=== PATIENT | female | born 1995 | race American Indian/Alaskan Native ===

== ENCOUNTER 2018-12-01 01:21 | Emergency (ER) | payer BC, MEDICAID ==
[2018-12-01 01:30] VITALS: BP 135/96
[2018-12-01] MEDS ORDERED: FUL-GLO OP ONE ×2 (02:40→02:42)
[2018-12-01] MEDS ORDERED: TETRACAINE 0.5% OU ONE (02:47)
[2018-12-01] MEDS ORDERED: TETRACAINE 0.5% ONE (02:48)
--- NOTE | 2018-12-01 03:16 | Emergency Department Report ---
ED Eye Problem HPI - General Chief complaint: Eye Problems Stated complaint: RT EYE PAIN Time Seen by Provider: 12/01/18 03:11 Source: patient Mode of arrival: Ambulatory Limitations: No Limitations - History of Present Illness Initial comments: 23-year-old -[place] female presents to the emergency room for watery red and painful right eye since Monday. Patient gerson wearing contacts or any trauma to her right eye. Patient reports that she has light sensitivity tearing and painfulness. chief complaint: eye pain -: days(s) (2) Location: right eye If Injury: none Eye Symptoms: burning, redness, pain, photophobia Severity scale (0 -10): 8 If Pain, Quality: sharp, aching, throbbing Consistency: constant Associated Symptoms: headache Treatments Prior to Arrival: none - Related Data Home Medications Medication Instructions Recorded Confirmed Last Taken Clindamycin [Clindamycin CAP] 300 mg PO BID 01/15/14 11/22/16 Unknown Nitrofurantoin [place]/M-Cryst 100 mg PO BID 01/15/14 11/22/16 Unknown [Macrobid] Gummies 1 tab PO DAILY 11/22/16 11/22/16 11/21/16 07:00 1 Previous Rx's Medication Instructions Recorded Last Taken Type Methylergonovine [Methergine] 0.2 mg PO BID #6 tablet 01/15/14 Unknown Rx oxyCODONE /ACETAMINOPHEN [Percocet 1 tab PO Q6HR PRN #20 tablet 01/15/14 Unknown Rx 5/325 mg] Ferrous Sulfate [Feosol 325 MG tab] 325 mg PO BID #60 tablet 11/26/16 Unknown Rx Ibuprofen [Motrin 800 MG tab] 800 mg PO Q6H PRN #30 tablet 11/26/16 Unknown Rx oxyCODONE /ACETAMINOPHEN [Percocet 1 - 2 tab PO Q4H PRN #30 tablet 11/26/16 Unknown Rx 5/325 mg] Labetalol HCl 300 mg PO BID #60 tablet 11/30/16 Unknown Rx NIFEdipine XL [Procardia Xl] 30 mg PO Q12HR #60 tab 11/30/16 Unknown Rx Acetaminophen/Codeine [Tylenol 1 tab PO Q4HR PRN #12 tablet 12/01/18 Unknown Rx /Codeine # 3 tab] Ibuprofen [Motrin 600 MG tab] 600 mg PO Q8H PRN #30 tablet 12/01/18 Unknown Rx Moxifloxacin HCl [Vigamox 0.5%] 1 drop OD Q8HR 10 Days #1 bottle 12/01/18 Unknown Rx Allergies Allergy/AdvReac Type Severity Reaction Status Date / Time No Known Allergies Allergy Unverified 01/15/14 09:13 ED Review of Systems ROS: Stated complaint: RT EYE PAIN Other details as noted in HPI Comment: All other systems reviewed and negative Eyes: eye pain ED Past Medical Hx - Past Medical History Hx Hypertension: Yes (PIH) Hx Congestive Heart Failure: No Hx Diabetes: No Hx Asthma: No Hx COPD: No - Surgical History Past Surgical History?: Yes Additional Surgical History: - Social History Smoking Status: Never Smoker Substance Use Type: None - Medications Home Medications: Home Medications Medication Instructions Recorded Confirmed Last Taken Type Clindamycin [Clindamycin CAP] 300 mg PO BID 01/15/14 11/22/16 Unknown History Methylergonovine [Methergine] 0.2 mg PO BID #6 tablet 01/15/14 11/22/16 Unknown Rx Nitrofurantoin [place]/M-Cryst 100 mg PO BID 01/15/14 11/22/16 Unknown History [Macrobid] oxyCODONE /ACETAMINOPHEN [Percocet 1 tab PO Q6HR PRN #20 tablet 01/15/14 11/22/16 Unknown Rx 5/325 mg] Gummies 1 tab PO DAILY 11/22/16 11/22/16 11/21/16 07:00 History 1 Ferrous Sulfate [Feosol 325 MG tab] 325 mg PO BID #60 tablet 11/26/16 Unknown Rx Ibuprofen [Motrin 800 MG tab] 800 mg PO Q6H PRN #30 tablet 11/26/16 Unknown Rx oxyCODONE /ACETAMINOPHEN [Percocet 1 - 2 tab PO Q4H PRN #30 tablet 11/26/16 Unknown Rx 5/325 mg] Labetalol HCl 300 mg PO BID #60 tablet 11/30/16 Unknown Rx NIFEdipine XL [Procardia Xl] 30 mg PO Q12HR #60 tab 11/30/16 Unknown Rx Acetaminophen/Codeine [Tylenol 1 tab PO Q4HR PRN #12 tablet 12/01/18 Unknown Rx /Codeine # 3 tab] Ibuprofen [Motrin 600 MG tab] 600 mg PO Q8H PRN #30 tablet 12/01/18 Unknown Rx Moxifloxacin HCl [Vigamox 0.5%] 1 drop OD Q8HR 10 Days #1 bottle 12/01/18 Unknown Rx ED Physical Exam - General Limitations: No Limitations General appearance: alert, in no apparent distress - Head Head exam: Present: atraumatic, normocephalic - Eye Eye exam: Present: PERRL, EOMI, other (flouroscein up take where also is identified at 5:00 both abrasion.) - ENT ENT exam: Present: mucous membranes moist - Respiratory Respiratory exam: Present: normal lung sounds bilaterally. Absent: respiratory distress - Cardiovascular Cardiovascular Exam: Present: regular rate, normal rhythm. Absent: systolic murmur, diastolic murmur, rubs, gallop - Neurological Exam Neurological exam: Present: alert, oriented X3 - Psychiatric Psychiatric exam: Present: normal affect, normal mood - Skin Skin exam: Present: warm, dry, intact, normal color. Absent: rash ED Course Vital Signs 12/01/18 01:27 Temperature 98.2 F Pulse Rate 95 H Respiratory 16 Rate Blood Pressure 135/96 O2 Sat by Pulse 100 Oximetry ED Medical Decision Making - Medical Decision Making Patient has been evaluated by this provider in fast track. I asked for to evaluate my patient as it appears that she has accordingly her ulcer with an abrasion. Attending provider agree with my assessment he recommends Vigamox eyedrops pain medication and referral to ophthalmology. Critical care attestation.: If time is entered above; I have spent that time in minutes in the direct care of this critically ill patient, excluding procedure time. ED Disposition Clinical Impression: Corneal ulcer of right eye Corneal abrasion, right Qualifiers: Encounter type: initial encounter Qualified Code(s): S05.01XA - Injury of conjunctiva and corneal abrasion without foreign body, right eye, initial encounter Disposition: - TO HOME OR SELFCARE Is pt being admited?: No Does the pt Need Aspirin: No Condition: Stable Instructions: Corneal Abrasion (ED), Corneal Ulcer (ED) Additional Instructions: Please use eye drops and pain medication as prescribed. 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 Please do not place any contacts in the eye. Please do not rub the eye. Prescriptions: Acetaminophen/Codeine [Tylenol /Codeine # 3 tab] 1 tab PO Q4HR PRN #12 tablet PRN Reason: Pain Ibuprofen [Motrin 600 MG tab] 600 mg PO Q8H PRN #30 tablet PRN Reason: Pain Moxifloxacin HCl [Vigamox 0.5%] 1 drop OD Q8HR 10 Days #1 bottle Referrals: MANUEL MCCORMACK MD [Primary Care Provider] - 3-5 Days [facility] [Provider Group] - 3-5 Days [facility] [Provider Group] - 3-5 Days NATALIE DONALDSON MD [Staff Physician] - 3-5 Days GOKUL PIMENTEL MD [Staff Physician] - 3-5 Days LINDA ALCALA MD [Staff Physician] - 3-5 Days MARY YU MD [Staff Physician] - 3-5 Days Forms: Accompanied Note, Work/School Release Form(ED)
[2018-12-01] MEDS ORDERED: IBUPROFEN PO ONE (03:20)
[2018-12-01] MEDS ORDERED: TYLENOL #3 PO ONE (03:20)
== END 2018-12-01 03:36 | disposition home or self-care (01) ==
LOC: ED 01:21
DX: S05.01XA Injury of conjunctiva and corneal abrasion without foreign body, right eye, initial encounter (principal); H16.001 Unspecified corneal ulcer, right eye; I10 Essential (primary) hypertension; X58.XXXA Exposure to other specified factors, initial encounter; Y93.89 Activity, other specified; Y92.89 Other specified places as the place of occurrence of the external cause; Y99.8 Other external cause status
CPT/HCPCS: 99282

== ENCOUNTER 2019-01-26 12:05 | Inpatient (IN) | payer BC, MEDICAID ==
--- NOTE | 2019-01-26 12:26 | Emergency Department Report ---
Chief Complaint: Abdominal Pain Stated Complaint: R SIDE PAIN/PREG Time Seen by Provider: 01/26/19 12:23 - HPI History of Present Illness: right flank pain since 01/24/19 no dysuria, no urinary sx, no fever, no emesis LNMP 12/24/18, took at home test which is positive first appt with OB is not until February 14 no vaginal bleeding, no discharge - Exam Vital Signs: Vital Signs 01/26/19 12:20 Temperature 98.8 F Pulse Rate 110 H Respiratory 18 Rate Blood Pressure 129/88 O2 Sat by Pulse 100 Oximetry MSE screening note: Focused history and physical exam performed. Due to findings the following was ordered: UA, hcg quant ED Disposition for MSE Condition: Stable Instructions: Abdominal Pain (ED)
[2019-01-26 13:48] LABS: Bilirubin,Urine NEG (Negative); Blood,Urine LG (Negative); Color,Urine Yellow (Yellow); Mucus,Urine 2+ /HPF
[2019-01-26 13:53] LABS: RBC,Urine > 182.0 /HPF (0.0-6.0); WBC,Urine > 182.0 /HPF (0.0-6.0)
--- NOTE | 2019-01-26 13:57 | Emergency Department Report ---
ED Back Pain/Injury HPI - General Chief Complaint: Abdominal Pain Stated Complaint: R SIDE PAIN/PREG Time Seen by Provider: 01/26/19 12:23 Source: patient Limitations: No Limitations - History of Present Illness Initial Comments: 23-year-old female with right flank pain 2 days. Patient denies fever, dysuria, hematuria, nausea or vomiting. Reports urinary frequency. Patient r eports positive test at home. Patient denies abdominal pain. LMP 4 weeks ago. OB: Imani PEARCE Complaint: back pain -: days(s) (2) Similar Symptoms Previously: No Radiation: none Severity: mild Consistency: constant Improves With: none Worsens With: movement Context: unknown Associated Symptoms: other (reports frequency). denies: fever/chills, nausea/vomiting - Related Data Home Medications Medication Instructions Recorded Confirmed Last Taken Clindamycin [Clindamycin CAP] 300 mg PO BID 01/15/14 11/22/16 Unknown Nitrofurantoin [place]/M-Cryst 100 mg PO BID 01/15/14 11/22/16 Unknown [Macrobid] Gummies 1 tab PO DAILY 11/22/16 11/22/16 11/21/16 07:00 1 Previous Rx's Medication Instructions Recorded Last Taken Type Methylergonovine [Methergine] 0.2 mg PO BID #6 tablet 01/15/14 Unknown Rx oxyCODONE /ACETAMINOPHEN [Percocet 1 tab PO Q6HR PRN #20 tablet 01/15/14 Unknown Rx 5/325 mg] Ferrous Sulfate [Feosol 325 MG tab] 325 mg PO BID #60 tablet 11/26/16 Unknown Rx Ibuprofen [Motrin 800 MG tab] 800 mg PO Q6H PRN #30 tablet 11/26/16 Unknown Rx oxyCODONE /ACETAMINOPHEN [Percocet 1 - 2 tab PO Q4H PRN #30 tablet 11/26/16 Un known Rx 5/325 mg] Labetalol HCl 300 mg PO BID #60 tablet 11/30/16 Unknown Rx NIFEdipine XL [Procardia Xl] 30 mg PO Q12HR #60 tab 11/30/16 Unknown Rx Acetaminophen/Codeine [Tylenol 1 tab PO Q4HR PRN #12 tablet 12/01/18 Unknown Rx /Codeine # 3 tab] Ibuprofen [Motrin 600 MG tab] 600 mg PO Q8H PRN #30 tablet 12/01/18 Unknown Rx Moxifloxacin HCl [Vigamox 0.5%] 1 drop OD Q8HR 10 Days #1 bottle 12/01/18 Unknown Rx Allergies Allergy/AdvReac Type Severity Reaction Status Date / Time No Known Allergies Allergy Verified 01/26/19 12:06 ED Review of Systems ROS: Stated complaint: R SIDE PAIN/PREG Other details as noted in HPI Comment: All other systems reviewed and negative Constitutional: denies: chills, fever Gastrointestinal: denies: abdominal pain, nausea, vomiting Genitourinary: frequency. denies: dysuria, hematuria Musculoskeletal: back pain ED Past Medical Hx - Past Medical History Previous Medical History?: Yes Hx Hypertension: Yes (PIH) Hx Congestive Heart Failure: No Hx Diabetes: No Hx Asthma: No Hx COPD: No - Surgical History Additional Surgical History: - Social History Smoking Status: Never Smoker Substance Use Type: Alcohol, Marijuana - Medications Home Medications: Home Medications Medication Instructions Recorded Confirmed Last Taken Type Clindamycin [Clindamycin CAP] 300 mg PO BID 01/15/14 11/22/16 Unknown History Methylergonovine [Methergine] 0.2 mg PO BID #6 tablet 01/15/14 11/22/16 Unknown Rx Nitrofurantoin [place]/M-Cryst 100 mg PO BID 01/15/14 11/22/16 Unknown History [Macrobid] oxyCODONE /ACETAMINOPHEN [Percocet 1 tab PO Q6HR PRN #20 tablet 01/15/14 11/22/16 Unknown Rx 5/325 mg] Gummies 1 tab PO DAILY 11/22/16 11/22/16 11/21/16 07:00 History 1 Ferrous Sulfate [Feosol 325 MG tab] 325 mg PO BID #60 tablet 11/26/16 Unknown Rx Ibuprofen [Motrin 800 MG tab] 800 mg PO Q6H PRN #30 tablet 11/26/16 Unknown Rx oxyCODONE /ACETAMINOPHEN [Percocet 1 - 2 tab PO Q4H PRN #30 tablet 11/26/16 Unknown Rx 5/325 mg] Labetalol HCl 300 mg PO BID #60 tablet 11/30/16 Unknown Rx NIFEdipine XL [Procardia Xl] 30 mg PO Q12HR #60 tab 11/30/16 Unknown Rx Acetaminophen/Codeine [Tylenol 1 tab PO Q4HR PRN #12 tablet 12/01/18 Unknown Rx /Codeine # 3 tab] Ibuprofen [Motrin 600 MG tab] 600 mg PO Q8H PRN #30 tablet 12/01/18 Unknown Rx Moxifloxacin HCl [Vigamox 0.5%] 1 drop OD Q8HR 10 Days #1 bottle 12/01/18 Unknown Rx ED Physical Exam - General Limitations: No Limitations General appearance: alert, in no apparent distress - Head Head exam: Present: atraumatic, normocephalic - Eye Eye exam: Present: normal appearance - ENT ENT exam: Present: mucous membranes moist - Neck Neck exam: Present: normal inspection - Respiratory Respiratory exam: Present: normal lung sounds bilaterally. Absent: respiratory distress - Cardiovascular Cardiovascular Exam: Present: normal rhythm, tachycardia - GI/Abdominal GI/Abdominal exam: Present: soft. Absent: distended, tenderness - Extremities Exam Extremities exam: Present: normal inspection - Back Exam Back exam: Present: CVA tenderness (R) - Neurological Exam Neurological exam: Present: alert, oriented X3 - Psychiatric Psychiatric exam: Present: normal affect, normal mood - Skin Skin exam: Present: warm, dry, intact, normal color ED Course Vital Signs 01/26/19 01/26/19 12:20 13:59 Temperature 98.8 F Pulse Rate 110 H 88 Respiratory 18 18 Rate Blood Pressure 129/88 Blood Pressure 127/79 [Right] O2 Sat by Pulse 100 100 Oximetry ED Medical Decision Making - Lab Data Result diagrams: 01/26/19 14:04 01/26/19 12:42 - Medical Decision Making - hcg only 182, likely won't be able to see anything on US, so OB US not done; pt denies abd pain anyway - no fever, vitals normal - labs normal, WBCs nml, renal function nml - pt tolerating PO, no vomiting - 1L [place] NS given - spoke w/ Dr Rodriguez, will admit - Differential Diagnosis UTI, peylonephritis Critical care attestation.: If time is entered above; I have spent that time in minutes in the direct care of this critically ill patient, excluding procedure time. ED Disposition Clinical Impression: Pyelonephritis affecting in first trimester Disposition: OP ADMIT IP TO THIS HOSP Is pt being admited?: Yes Condition: Stable Instructions: Abdominal Pain (ED) Referrals: ELVIA SOLITARIO MD [Primary Care Provider] - 3-5 Days Time of Disposition: 15:38
[2019-01-26] MEDS ORDERED: NACL 0.9% 1000 ML 1,000 ML IV ONE (14:00)
[2019-01-26] MEDS ORDERED: ROCEPHIN/NS 1 GM/50 ML 1 GM/50 ML BAG IV ONE (14:00)
[2019-01-26 14:19] LABS: Basophils % (Auto) 0.4 % (0.0-1.8); Eosinophils % (Auto) 0.4 % (0.0-4.3); Hematocrit 37.6 % (30.3-42.9); Hemoglobin 12.6 gm/dl (10.1-14.3); Lymphocytes # (Auto) 1.5 K/mm3 (1.2-5.4); Lymphocytes % (Auto) 16.4 % (13.4-35.0); Mean Corpuscular HGB Conc 33 % (30-34); Mean Corpuscular Volume 85 fl (79-97); Monocytes # (Auto) 0.7 K/mm3 (0.0-0.8); Monocytes % (Auto) 8.3 % (0.0-7.3); Platelet Count 362 K/mm3 (140-440); Red Blood Count 4.44 M/mm3 (3.65-5.03); Red Cell Distribution Width 13.5 % (13.2-15.2)
[2019-01-26 14:47] LABS: BUN/Creatinine Ratio 14; Blood Urea Nitrogen 10 mg/dL (7-17); Calcium 9.2 mg/dL (8.4-10.2); Hemolysis Index 75
--- NOTE | 2019-01-26 15:49 | History and Physical Report ---
History of Present Illness Date of examination: 01/26/19 Chief complaint: See ED history 23yof LMP 12/24/2018 History of present illness: Past History : 4 Term Births: 1 Premature Births: 1 Living Children: 2 Para: 2 Mult. Births: 0 Prev : 0 Aborta: 1 Elect. Ab: 0 Spont. 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 of genital herpes: no Partner hx. of genital herpes: no Hx of STD: No Current Allergies (reviewed today): No known allergies Past Medical History: Reviewed history from 11/28/2013 and no changes required: Negative Past Medical History Past Surgical History: Reviewed history from 06/02/2016 and no changes required: negative Social History: Reviewed history from 06/02/2016 and no changes required: Patient is single Smoking History: Patient has never smoked. Risk Factors: Smoked Tobacco Use: Never smoker Smokeless Tobacco Use: Never Passive smoke exposure: no Drug use: no HIV high-risk behavior: no Alcohol use: no Exercise: no Seatbelt use: 100 % Medications and Allergies Allergies Allergy/AdvReac Type Severity Reaction Status Date / Time No Known Allergies Allergy Verified 01/26/19 12:06 Home Medications Medication Instructions Recorded Confirmed Last Taken Type Clindamycin [Clindamycin CAP] 300 mg PO BID 01/15/14 11/22/16 Unknown History Methylergonovine [Methergine] 0.2 mg PO BID #6 tablet 01/15/14 11/22/16 Unknown Rx Nitrofurantoin [place]/M-Cryst 100 mg PO BID 01/15/14 11/22/16 Unknown History [Macrobid] oxyCODONE /ACETAMINOPHEN [Percocet 1 tab PO Q6HR PRN #20 tablet 01/15/14 11/22/16 Unknown Rx 5/325 mg] Gummies 1 tab PO DAILY 11/22/16 11/22/16 11/21/16 07:00 History 1 Ferrous Sulfate [Feosol 325 MG tab] 325 mg PO BID #60 tablet 11/26/16 Unknown Rx Ibuprofen [Motrin 800 MG tab] 800 mg PO Q6H PRN #30 tablet 11/26/16 Unknown Rx oxyCODONE /ACETAMINOPHEN [Percocet 1 - 2 tab PO Q4H PRN #30 tablet 11/26/16 Unknown Rx 5/325 mg] Labetalol HCl 300 mg PO BID #60 tablet 11/30/16 Unknown Rx NIFEdipine XL [Procardia Xl] 30 mg PO Q12HR #60 tab 11/30/16 Unknown Rx Acetaminophen/Codeine [Tylenol 1 tab PO Q4HR PRN #12 tablet 12/01/18 Unknown Rx /Codeine # 3 tab] Ibuprofen [Motrin 600 MG tab] 600 mg PO Q8H PRN #30 tablet 12/01/18 Unknown Rx Moxifloxacin HCl [Vigamox 0.5%] 1 drop OD Q8HR 10 Days #1 bottle 12/01/18 Unknown Rx Review of Systems All systems: negative Musculoskeletal: other (right flank pain) Exam - Constitutional Vitals: Temp Pulse Resp BP Pulse Ox 98.8 F 88 18 127/79 100 01/26/19 12:20 01/26/19 13:59 01/26/19 13:59 01/26/19 13:59 01/26/19 13:59 General appearance: Present: no acute distress - Respiratory Respiratory effort: normal - Musculoskeletal Musculoskeletal: other (right CVAT/flank pain) Results - Labs CBC & Chem 7: 01/26/19 14:04 01/26/19 12:42 Labs: Abnormal lab results 01/26/19 01/26/19 01/26/19 Range/Units 12:42 13:12 14:04 [place] % (Auto) 8.3 H (0.0-7.3) % Seg Neutrophils % 74.5 H (40.0-70.0) % HCG, Quant 182.2 H (0-4) mIU/mL Urine WBC (Auto) > 182.0 H (0.0-6.0) /HPF Assessment and Plan - Patient Problems (1) Pyelonephritis affecting in first trimester Current Visit: Yes Status: Acute Plan to address problem: Will admit and start Rocephin IV Change to PO when symptoms improve Plan of care discussed, questions encouraged and answered, she voiced understanding and afrees with plan of care
[2019-01-26] MEDS ORDERED: TYLENOL PO PRN (19:47)
[2019-01-26] MEDS ORDERED: ALUM-MAG HYDROX-SIMETH 200-200-20MG/5ML PO PRN (19:47)
[2019-01-26] MEDS ORDERED: XYLOCAINE 1% MPF 5 mL INFILTRATI ONE (19:47)
[2019-01-26] MEDS ORDERED: COLACE PO PRN (19:47)
[2019-01-26] MEDS ORDERED: MYLICON PO PRN (19:47)
[2019-01-26] MEDS ORDERED: SENOKOT S PO PRN (19:47)
[2019-01-26] MEDS ORDERED: BENADRYL PO PRN (19:47)
[2019-01-26] MEDS ORDERED: MILK OF MAGNESIA PO PRN (19:47)
[2019-01-26] MEDS: NACL 0.9% 1000 ML 1,000 ML IV SCH (21:57)
[2019-01-27] MEDS ORDERED: ROCEPHIN/NS 1 GM/50 ML 1 GM/50 ML BAG IV SCH (10:00)
[2019-01-27] MEDS ORDERED: PRENATAL VITAMIN PO SCH (10:00)
--- NOTE | 2019-01-27 10:40 | Progress Note ---
Assessment and Plan - Patient Problems (1) Pyelonephritis affecting in first trimester Current Visit: Yes Status: Acute Plan to address problem: Will wait for ID and sensitivity to discharge on correct antibiotic. Plan of care explained, questions answered, she voiced understanding and agrees with plan of care Subjective Date of service: 01/27/19 Principal diagnosis: , pyelonephritis Gm(-) rods Interval history: No complaints, doing well, back much better Objective - Constitutional Vitals: Vital Signs - 12hr 01/27/19 01/27/19 01/27/19 00:00 04:05 07:59 Temperature 98.3 F 98.4 F 98.6 F Pulse Rate 96 H 94 H 81 Respiratory 20 20 18 Rate Blood Pressure 113/74 108/63 100/63 [Right] O2 Sat by Pulse 100 99 Oximetry General appearance: Present: no acute distress - Labs CBC & Chem 7: 01/26/19 14:04 01/26/19 12:42 Labs: Abnormal lab results 01/26/19 01/26/19 01/26/19 Range/Units 12:42 13:12 14:04 [place] % (Auto) 8.3 H (0.0-7.3) % Seg Neutrophils % 74.5 H (40.0-70.0) % HCG, Quant 182.2 H (0-4) mIU/mL Urine WBC (Auto) > 182.0 H (0.0-6.0) /HPF Medications & Allergies - Medications Allergies/Adverse Reactions: Allergies No Known Allergies Allergy (Verified 01/26/19 12:06) Home Medications: Home Medications Medication Instructions Recorded Confirmed Last Taken Type Clindamycin [Clindamycin CAP] 300 mg PO BID 01/15/14 01/27/19 Unknown History Methylergonovine [Methergine] 0.2 mg PO BID #6 tablet 01/15/14 01/27/19 Unknown Rx Nitrofurantoin [place]/M-Cryst 100 mg PO BID 01/15/14 01/27/19 Unknown History [Macrobid] oxyCODONE /ACETAMINOPHEN [Percocet 1 tab PO Q6HR PRN #20 tablet 01/15/14 01/27/19 Unknown Rx 5/325 mg] Gummies 1 tab PO DAILY 11/22/16 01/27/19 11/21/16 07:00 History 1 Ferrous Sulfate [Feosol 325 MG tab] 325 mg PO BID #60 tablet 11/26/16 01/27/19 Unknown Rx Ibuprofen [Motrin 800 MG tab] 800 mg PO Q6H PRN #30 tablet 11/26/16 01/27/19 Unknown Rx oxyCODONE /ACETAMINOPHEN [Percocet 1 - 2 tab PO Q4H PRN #30 tablet 11/26/16 01/27/19 Unknown Rx 5/325 mg] Labetalol HCl 300 mg PO BID #60 tablet 11/30/16 01/27/19 Unknown Rx NIFEdipine XL [Procardia Xl] 30 mg PO Q12HR #60 tab 11/30/16 01/27/19 Unknown Rx Acetaminophen/Codeine [Tylenol 1 tab PO Q4HR PRN #12 tablet 12/01/18 01/27/19 Unknown Rx /Codeine # 3 tab] Ibuprofen [Motrin 600 MG tab] 600 mg PO Q8H PRN #30 tablet 12/01/18 01/27/19 Unknown Rx Moxifloxacin HCl [Vigamox 0.5%] 1 drop OD Q8HR 10 Days #1 bottle 12/01/18 01/27/19 Unknown Rx Active Medications: Generic Name Dose Route Start Last Admin Trade Name Freq PRN Reason Stop Dose Admin Acetaminophen 650 mg 01/26/19 19:47 01/26/19 21:56 Tylenol PO 650 mg Q6HR PRN Administration Pain MILD(1-3)/Fever >100.5/CAMPO Al Hydrox/Mg Hydrox/Simethicone 30 ml 01/26/19 19:47 Alum-Mag Hydrox-Simeth [id number]/5ml PO Q6H PRN Indigestion Diphenhydramine HCl 25 mg 01/26/19 19:47 Benadryl PO Q6H PRN Itching Docusate Sodium 100 mg 01/26/19 19:47 Colace PO Q12H PRN Constipation Ceftriaxone Sodium 1 gm in 50 mls @ 100 mls/hr 01/27/19 10:00 Rocephin/Ns 1 Gm/50 Ml IV 01/31/19 09:59 DAILY DARÍO Protocol Sodium Chloride 1,000 mls @ 50 mls/hr 01/26/19 21:00 01/26/19 21:57 Nacl 0.9% 1000 Ml IV 50 mls/hr DIRECT DARÍO Administration Magnesium Hydroxide 30 ml 01/26/19 19:47 Milk Of Magnesia PO QHS PRN Laxative Effect Multivitamins/Iron/Calcium 1 each 01/27/19 10:00 Vitamin PO QDAY DARÍO Senna/Docusate Sodium 2 tab 01/26/19 19:47 Senokot S PO Q12H PRN Laxative Effect Simethicone 80 mg 01/26/19 19:47 Mylicon PO Q6H PRN Gas pain
[2019-01-27] MEDS: NACL 0.9% 1000 ML 1,000 ML IV SCH (17:59)
[2019-01-28 05:22] VITALS: BP 95/54
--- NOTE | 2019-01-28 08:20 | Discharge Summary ---
Providers - Providers Date of Admission: 01/26/19 15:34 Date of discharge: 01/28/19 (pt anxious to go home) Attending physician: TESHA ARSHAD Primary care physician: ELVIA SOLITARIO Hospitalization Reason for admission: Pyelo in first trimester Condition: Good Hospital course: uncomplicated Good results with IV Rocephin Disposition: DC-01 TO HOME OR SELFCARE - Discharge Diagnoses (1) Pyelonephritis affecting in first trimester Status: Acute Comment: pt has appt in office 02-14-19 to establish care; will d/c on PO macrobid Core Measure Documentation - Palliative Care Palliative Care/ Comfort Measures: Not Applicable - Core Measures Any of the following diagnoses?: none - VTE Discharge Requirements Deep Vein Thrombosis/Pulmonary Embolism Present on Admission: No Has pt received <5 days of overlap therapy or INR<2.0: No Anticoagulant overlap therapy prescribed at discharge: No Contraindication No Overlap Therapy order at DC: Not Indicated - Acute DC Discharge Requirements Aspirin at discharge: No Reason for no aspirin on DC: Medical contraindication ANTONIO/ARB for LVSD if EF <40%: Not Applicable Reason for no ANTONIO/ARB: Medical contraindication Beta ainsley at discharge: No Reason for no beta ainsley on DC: Medical contraindication Statin for LDL = or >100 mg/dl on DC: Not Applicable Reason for no statin on DC: Medical contraindication - Heart Failure Discharge Requirements ANTONIO/ARB for LVSD if EF <40%: Not Applicable Reason for no ANTONIO/ARB: Medical contraindication Beta ainsley at discharge: No Reason for no beta ainsley on DC: Medical contraindication - Stroke Discharge Requirements Statin for LDL = or >70 mg/dl on DC: Not Applicable Reason for no statin on DC: Not Indicated Anticoag for atrial fib/atrial flutter: Not Applicable Reason for no anticoag for AF/F on DC: Not Indicated Antithrombotic for ischemic stroke: No Reason for no antithrombotic on DC: Not Indicated Exam - Constitutional Vitals: Temp Pulse Resp BP Pulse Ox 98.0 F 85 18 95/54 100 01/28/19 04:30 01/28/19 04:30 01/28/19 04:30 01/28/19 04:30 01/28/19 04:30 General appearance: Present: no acute distress, well-nourished - EENT Eyes: Present: PERRL ENT: hearing intact, clear oral mucosa - Neck Neck: Present: supple, normal ROM - Respiratory Respiratory effort: normal Respiratory: bilateral: CTA - Cardiovascular Heart Sounds: Present: S1 & S2. Absent: rub, click - Extremities Extremities: pulses symmetrical, No edema Peripheral Pulses: within normal limits - Abdominal General gastrointestinal: Present: deferred Female genitourinary: Present: normal - Rectal Rectal Exam: deferred - Integumentary Integumentary: Present: clear, warm, dry - Musculoskeletal Musculoskeletal: gait normal, strength equal bilaterally - Psychiatric Psychiatric: appropriate mood/affect, intact judgment & insight - Neurologic Neurologic: CNII-XII intact, moves all extremities Plan Activity: advance as tolerated Diet: regular Follow up with: ELVIA SOLITARIO MD [Primary Care Provider] - 7 Days (Please call [phone] with any questions or concers. Drink plenty of water. Avoid sugar drinks. Please take medications as prescribed. please keep appointment as scheduled for February 14, 2019)
== END 2019-01-28 09:45 | disposition home or self-care (01) | DRG 832 ==
LOC: ED 12:05 → OB 15:34
PROVIDERS: ADMIT Obstetrics & Gynecology; ATTEND Obstetrics & Gynecology
DX: O23.01 Infections of kidney in pregnancy, first trimester (principal); O10.911 Unspecified pre-existing hypertension complicating pregnancy, first trimester; O99.321 Drug use complicating pregnancy, first trimester; O99.311 Alcohol use complicating pregnancy, first trimester; F12.90 Cannabis use, unspecified, uncomplicated; Z79.899 Other long term (current) drug therapy; Z72.89 Other problems related to lifestyle; Z3A.00 Weeks of gestation of pregnancy not specified
CPT/HCPCS: 36415; 80048; 81001; 84702; 85025; 87076; 87086; 87186; 96365; G0378; J0696; J7030